=== PATIENT | female | born 1995 | race Caucasian/White ===

== ENCOUNTER → 2016-09-23 | Outpatient (CLI) | payer OTHER ==
[~2016-09-23] MED LIST: PRENTAB26 PO
== END | disposition home or self-care (01) ==
LOC: C.PAPS 07:59
PROVIDERS: ATTEND Obstetrics & Gynecology
DX: Z12.4 Encounter for screening for malignant neoplasm of cervix (principal); R87.616 Satisfactory cervical smear but lacking transformation zone; Z87.42 Personal history of other diseases of the female genital tract

== ENCOUNTER → 2017-09-29 | Outpatient (CLI) | payer BC | END | disposition home or self-care (01) | LOC: C.LABSPEC 13:43 | PROVIDERS: ATTEND Obstetrics & Gynecology | DX: Z11.3 Encounter for screening for infections with a predominantly sexual mode of transmission (principal) ==

== ENCOUNTER → 2017-09-29 | Outpatient (CLI) | payer BC | END | disposition home or self-care (01) | LOC: C.PAPS 14:32 | PROVIDERS: ATTEND Obstetrics & Gynecology | DX: Z01.419 Encounter for gynecological examination (general) (routine) without abnormal findings (principal) ==

== ENCOUNTER 2023-02-21 07:34 | Inpatient (IN) ==
[2023-02-21] MEDS ORDERED: OXYTOCIN 30 UNITS/500 ML BAG IV PRN ×2 (08:39)
[2023-02-21] MEDS ORDERED: miSOPROStoL 50 MCG TAB PO ONE (08:39)
[2023-02-21] MEDS ORDERED: LIDOCAINE 1% LOCAL 20 ML VIAL INFIL PRN (08:39)
--- NOTE | 2023-02-21 09:04 | History & Physical Report ---
"Date of Service February 21, 2023 Assessment & Plan (1) Encounter for induction of labor: Plan: lund bulb out pitocin arom when indicated monitor tracing, category 1 Admission and Anticipated Discharge Date Admission Date: February 21, 2023 History of Present Illness Primary Care Provider: Kwabena Sanches MD 27 yo at 40w5d admitted for IOL for postdates. Lund bulb placed yesterday, fell out spontaneously this AM. Denies ARNDT, CP, SOB, N/V/D, LE pain. GBS neg, RH+ Allergies Allergy/AdvReac Type Severity Reaction Status Date / Time cat dander Allergy Watery Eye Verified 02/20/23 20:50 No Known Drug Allergies Allergy Unknown Verified 02/20/23 20:50 Home Medications Medication Instructions Recorded Confirmed Type prenat.vits,viktor,[id number] 1 tab PO DAILY 07/12/22 02/21/23 History levothyroxine 100 mcg tablet 100 mcg PO DAILY #30 tabs 12/23/22 02/21/23 Rx Past Med/Surg History Medical History (Updated 02/21/23 @ 09:13 by Trevor Quintana DO) Cervical dysplasia Abiel's thyroiditis Malaise and fatigue Overweight (BMI 25.0-29.9) Stress Surgical History H/O colposcopy with cervical biopsy History of tonsillectomy [place] teeth extracted 2016 Family History Grandfather (Maternal) Myocardial infarction Grandmother (Maternal) Diabetes Melanoma Father Headache syndrome Grandmother (Paternal) Hypothyroidism Aunt Hypothyroidism maternal Breast cancer Other Cancer Hypertension Lung disease Osteoarthritis Denies family history of Ovarian cancer Prostate cancer Colorectal cancer Social History (Updated 02/21/23 @ 07:56 by Melba Quiglye RN) Smoking Status: Former smoker Tobacco Type: Cigarettes Second Hand Exposure: No; Do You Dip or Chew Tobacco: No; Hx Alcohol Use: No Hx Substance Use: No Preferred Language: Pashto Communication Ability: Effective 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 Skin: warm, dry, intact HEENT: NC/AT, anicteric sclera, conjunctiva without injection, moist mucus membranes Heart: +S1/S2, regular, no m/r/g Lungs: equal air entry bilaterally, no rales/rhonchi/wheezes Abd: +BS, soft, NT/ND, gravid uterus Cervical: 3.5|75|-2|, mid, soft Ext: warm, no clubbing/cyanosis or edema Neuro: nonfocal, patient AA&O x 4, speech intact, no facial droop, moving all extremities on command. : FHR baseline 130, moderate variability, accelerations present, decelerations absent Results & Data Results & Data Vital Signs (Past 12 Hours) Vital Signs Temp Pulse Resp BP 02/21/23 08:02 99 H 118/79 02/21/23 07:57 37.1 C 18 Laboratory Results 02/21/23 02/21/23 Range/Units 08:59 08:59 WBC Pending RBC Pending Hgb Pending Hct Pending MCV Pending MCH Pending MCHC Pending Plt Count Pending Blood Type Pending Antibody Screen Pending Supervising Physician Co-Signing Physician Notes Resident Physician Supervision Note: I interviewed and examined the patient. Discussed with Dr. Quintana and agree with findings and plan as documented in the note. Any exceptions or clarifications are listed here: [id number] with iup at 40 5/7 who presents for postdates induction. Good response to lund bulb. cx 3.5/80/-2. efw 8-9. Plan pit induction, arom when indicated, epidural on demand, anticipate . Fetus category one. Documented By: Bebe Chicas MD, FACOG Resident Activity Tracking Resident Involvement: Resident Care Provided Care Provided: Adult [facility] Medicine History History 2 Para Past Pregnancies Del. Date GA wks Lbr Lgth wt Sex Type del Anes Place Del Prov Preter m? Comment 01/27/12 40 8lb 5oz M Epidural [facility] Dr. Higuera on N 2nd degree perineal laceration"
[2023-02-21] MEDS: LACTATED RINGER'S 1,000 ML IV PRN ×3 (09:08→17:35)
[2023-02-21 09:30] LABS: Hematocrit (blood only) 34.7 % (37.0-47.0); Hemoglobin 11.7 g/dl (12.0-16.0); Mean Corpuscular Hemoglobin 30.8 pg (25.0-34.0); Mean Corpuscular Hgb Conc 33.7 g/dL (32.0-36.0); Mean Corpuscular Volume 91.3 fL (80.0-100.0); Mean Platelet Volume 9.7 fL (9.4-12.4); Platelet Count 218 K/uL (130-400); RDW Coefficient of Variation 13.4 % (11.5-14.5); RDW Standard Deviation 45.1 fL (36.4-46.3); White Blood Count 10.18 K/ul (4.8-10.8)
[2023-02-21] MEDS ORDERED: BUPIVACAINE 0.25% PF 30 ML VIAL ONE (12:58)
[2023-02-21] MEDS ORDERED: SODIUM CHLORIDE 0.9% PF INJ 10 ML VIAL ONE (12:58)
[2023-02-21] MEDS ORDERED: ePHEDrine sulfate 50 MG/ML AMP ONE (12:58)
[2023-02-21] MEDS ORDERED: fentaNYL citrate PF 100 MCG/2 ML VIAL ONE (12:58)
[2023-02-21] MEDS ORDERED: LIDOCAINE 2%/EPINEPHRINE 1:200,000 20 ML PF ONE (12:58)
[2023-02-21] MEDS ORDERED: fentaNYL 2MCG/ML ROPIVACAINE 1.25MG/ML 100 ML BAG EPI ONE (12:59)
--- NOTE | 2023-02-21 14:11 | Anesthesiology Consultation ---
Date of Service February 21, 2023 Assessment & Plan Chart Review Chart Review: Acceptable Risk for Labor Epidural Consults Requested none History Height/Weight Height: 5 ft 3 in Weight: 99.79 kg Allergies Allergy/AdvReac Type Severity Reaction Status Date / Time cat dander Allergy Watery Eye Verified 02/20/23 20:50 No Known Drug Allergies Allergy Unknown Verified 02/20/23 20:50 Medications Home Medications Medication Instructions Recorded Confirmed Last Taken prenat.vits,viktor,dyz-[id number]-lsfom 1 tab PO DAILY 07/12/22 02/21/23 02/21/23 levothyroxine 100 mcg tablet 100 mcg PO DAILY #30 tabs 12/23/22 02/21/23 02/21/23 Active Medications Generic Name Dose Route Start Last Admin Trade Name Freq PRN Reason Stop Dose Admin Oxytocin 30 units in 500 mls @ 11 mls/hr 02/21/23 08:39 02/21/23 12:15 Pitocin IV 02/23/23 08:38 0.66 units/hr .Q24H PRN 11 mls/hr Labor Induction/Augmentation Titration Protocol 0.66 UNITS/HR Lactated Ringer's 1,000 mls @ 125 mls/hr 02/21/23 08:39 02/21/23 13:57 Lr IV 02/23/23 08:38 125 mls/hr .Q8H PRN Infusion L&D Protocol Protocol Past Medical History Medical History (Updated 02/21/23 @ 09:13 by Trevor Quintana DO) Cervical dysplasia Abiel's thyroiditis Malaise and fatigue Overweight (BMI 25.0-29.9) Stress Past Family History Family History Grandfather (Maternal) Myocardial infarction Grandmother (Maternal) Diabetes Melanoma Father Headache syndrome Grandmother (Paternal) Hypothyroidism Aunt Hypothyroidism maternal Breast cancer Other Cancer Hypertension Lung disease Osteoarthritis Denies family history of Ovarian cancer Prostate cancer Colorectal cancer Past Surgical History Surgical History H/O colposcopy with cervical biopsy History of tonsillectomy [place] teeth extracted 2016 Social History Smoking Status: Former smoker Do You Dip or Chew Tobacco: No Hx Alcohol Use: No Hx Substance Use: No substance use type: does not use Physical Exam Vital Signs Last Vital Signs Temp 36.9 C 02/21/23 10:56 Pulse 100 H 02/21/23 14:06 Resp 20 02/21/23 13:51 BP 97/54 L 02/21/23 14:06 Pulse Ox 99 02/21/23 14:04 Testing Laboratory Results 02/21/23 08:59 Blood Type O Positive 02/21/23 08:59 Antibody Screen NEGATIVE 02/21/23 08:59
[2023-02-21] MEDS ORDERED: BUPIVACAINE 0.25% PF 30 ML VIAL EPI STA (14:25)
[2023-02-21] MEDS ORDERED: SODIUM CHLORIDE 0.9% PF INJ 10 ML VIAL EPI STA (14:25)
[2023-02-21] MEDS ORDERED: NALOXONE HCL 1 MG in SODIUM CHLORIDE 0.9% 1,000 ML IV PRN (14:25)
[2023-02-21] MEDS ORDERED: diphenhydrAMINE 50 MG/ML VIAL IV PRN (14:25)
[2023-02-21] MEDS ORDERED: NALBUPHINE HCL INJ 10 MG/ML AMP IV PRN (14:25)
[2023-02-21] MEDS ORDERED: ROPIVACAINE 0.5% PF 5 MG/ML 20 ML VIAL EPI PRN (14:25)
[2023-02-21] MEDS ORDERED: LIDOCAINE 2% MPF LOCAL 5 ML VIAL EPI PRN (14:25)
[2023-02-21] MEDS ORDERED: ePHEDrine sulfate 50 MG/ML AMP IV PRN (14:25)
[2023-02-21] MEDS ORDERED: fentaNYL citrate PF 100 MCG/2 ML VIAL EPI PRN (14:25)
[2023-02-21] MEDS ORDERED: SODIUM CHLORIDE 0.9% PF INJ 10 ML VIAL EPI PRN (14:25)
[2023-02-21] MEDS ORDERED: BUPIVACAINE 0.25% PF 30 ML VIAL EPI PRN (14:25)
[2023-02-21] MEDS ORDERED: fentaNYL citrate PF 100 MCG/2 ML VIAL EPI STA (14:25)
[2023-02-21] MEDS ORDERED: NALOXONE HCL 0.4 MG/1 ML VIAL/CARP IV PRN (14:25)
[2023-02-21] MEDS ORDERED: LIDOCAINE 2%/EPINEPHRINE 1:200,000 20 ML PF EPI STA (14:25)
[2023-02-21] MEDS ORDERED: fentaNYL 2MCG/ML ROPIVACAINE 1.25MG/ML 100 ML BAG EPI PRN (14:25)
--- NOTE | 2023-02-21 14:51 | Labor Progress Brief Note ---
Date of Service February 21, 2023 Subjective comfortable with epidural Assessment & Plan (1) Encounter for induction of labor: Plan continue current management. fetus category one. anticipate . Admission and Anticipated Discharge Date Admission Date: February 21, 2023 Physical Exam Physical Exam: cx--4/75/-2 arom--small clear toco--q2-4, pit at 13 efm--130s wtih mod variability, accels to 150s, no decels Results & Data Vital Signs (Past 12 Hours) Vital Signs Temp Pulse Resp BP Pulse Ox 02/21/23 14:48 68 109/57 L 02/21/23 14:44 87 99 02/21/23 14:41 92 H 92/52 L 02/21/23 14:39 86 99 02/21/23 14:37 74 90/52 L 02/21/23 14:34 71 99 02/21/23 14:32 86 92/57 L 02/21/23 14:29 83 98 02/21/23 14:27 81 95/50 L 02/21/23 14:24 74 98 02/21/23 14:22 77 92/51 L 02/21/23 14:19 78 98 02/21/23 14:16 92 H 99/58 L 02/21/23 14:14 73 98 02/21/23 14:13 87 98/57 L 02/21/23 14:09 75 98 02/21/23 14:06 100 H 20 97/54 L 02/21/23 14:04 92 H 99 02/21/23 14:05 93 H 20 101/52 L 02/21/23 14:02 93 H 20 102/55 L 02/21/23 14:00 101 H 106/55 L 02/21/23 13:59 91 H 99 02/21/23 13:58 99 H 107/58 L 02/21/23 13:57 99 H 112/60 02/21/23 13:54 102 H 20 121/73 99 02/21/23 13:52 80 126/74 02/21/23 13:51 20 02/21/23 13:51 94 H 20 133/82 02/21/23 13:49 102 H 98 02/21/23 13:47 75 92 02/21/23 13:44 83 100 02/21/23 13:39 76 99 02/21/23 13:34 73 99 02/21/23 13:29 73 99 02/21/23 13:24 84 99 02/21/23 13:19 75 98 02/21/23 13:14 71 99 02/21/23 13:09 81 98 02/21/23 13:04 82 20 115/62 99 02/21/23 12:30 18 02/21/23 12:30 18 02/21/23 12:13 70 20 108/59 L 02/21/23 10:56 36.9 C 75 20 107/68 02/21/23 10:17 77 18 111/64 02/21/23 09:06 78 20 114/69 02/21/23 08:02 99 H 118/79 02/21/23 07:57 37.1 C 18 Coding Level of Care Code None Diagnoses Encounter for induction of labor Z34.90
--- NOTE | 2023-02-21 18:44 | Delivery Summary ---
Vaginal Delivery Summary Date of Service February 21, 2023 Vaginal Delivery Summary Spontaneous vaginal delivery the patient had been induced by Dr. Chicas earlier in the day and I was covering in the evening she rapidly progressed to fully dilated she was had an epidural and pushed over only several contractions group B strep negative no obvious meconium at time of delivery after delivery of the head there was a tight nuchal cord which was clamped and cut before delivery of the body then gentle traction on the baby no excessive force live vigorous male . Placenta was then delivered with traction IV Pitocin was started second-degree tear repaired with 3-0 Vicryl sponge and instrument counts correct estimated blood loss 250 mL
[2023-02-21] MEDS ORDERED: BENZOCAINE 20% SPRY 85 APPLN/85 GM CAN EXT PRN (18:47)
[2023-02-21] MEDS ORDERED: oxyCODONE/ACETAMINOPHEN 5mg/325mg TAB PO PRN (18:47)
[2023-02-21] MEDS ORDERED: bisacodyL 10 MG SUPP PR PRN (18:47)
[2023-02-21] MEDS ORDERED: DIPHTHERIA/TETANUS/PERTUSSIS Vaccine (Tdap, Age 7+yrs) 0.5mL SYR/VL IM ONE (18:47)
[2023-02-21] MEDS ORDERED: HYDROCORTISONE ACETATE 25 MG SUPP PR PRN (18:47)
[2023-02-21] MEDS ORDERED: ACETAMINOPHEN 325 MG TAB PO PRN (18:47)
[2023-02-21 18:55] LABS: Base Excess Cord Arterial Bld 0.3 mEq/L (-9-1.8); Base Excess Cord Venous Blood -0.4 mEq/L (-7.7-1.9); CO2 Cord Arterial Blood 53 mmHg (39.1-73.5); Cord Venous Blood HCO3 25 mmol/L (18.4-26.8); Cord Venous Blood PCO2 42 mmHg (30.4-57.2); Cord Venous Blood PO2 39 mmHg (14.1-43.3); Cord Venous Blood pH 7.38 (7.20-7.44); HCO3 Cord Arterial Blood 27 mmol/L (19.7-28.5); O2 Saturation Cord Venous Bld 71.5 % (<68); Oxygen Sat Cord Arterial Blood < 60.0 % (<60); PO2 Cord Arterial Blood 27 mmHg (4.1-31.7); pH Cord Arterial Blood 7.32 (7.1-7.38)
[2023-02-21] MEDS: OXYTOCIN 30 UNITS/500 ML BAG IV PRN ×3 (19:05→20:41)
[2023-02-21] MEDS ORDERED: CARBOPROST TROMETHAMINE 250 MCG/ML AMPUL IM ONE (20:52)
--- NOTE | 2023-02-21 20:55 | Obstetrical Progress Note ---
Date of Service February 21, 2023 Assessment & Plan Admission and Anticipated Discharge Date Admission Date: February 21, 2023 Subjective Patient had a hemorrhage she has not passed any huge clots but has had some ongoing trickling Pitocin has been increased and she is now on her fourth bag uterine tone is good I have done several bimanual exams and 1 time I was able to remove clot this most recent time no clot came out I am suspecting uterine atony as it was a fairly easy delivery and there is no bleeding from the tear will give some Hemabate and watch Results & Data Vital Signs (Past 12 Hours) Vital Signs Temp Pulse Resp BP Pulse Ox O2 Del Method 02/21/23 20:15 18 02/21/23 19:45 98.6 F 97 H 18 108/71 02/21/23 19:15 98.8 F 18 02/21/23 19:30 18 02/21/23 19:00 18 02/21/23 18:45 20 02/21/23 15:20 98.1 F 18 02/21/23 15:20 Room Air 02/21/23 20:49 102 H 114/74 02/21/23 20:45 94 H 105/65 02/21/23 20:18 105 H 128/69 02/21/23 20:02 97 H 108/71 02/21/23 19:47 73 105/64 02/21/23 19:32 91 H 100/55 L 02/21/23 19:19 95 H 98 02/21/23 19:17 90 110/62 02/21/23 19:14 93 H 98 02/21/23 19:09 101 H 97 02/21/23 19:06 100 H 93 02/21/23 19:04 86 98 02/21/23 19:02 104 H 114/72 02/21/23 18:59 100 H 98 02/21/23 18:54 108 H 99 02/21/23 18:49 92 H 99 02/21/23 18:46 103 H 111/69 02/21/23 18:44 97 H 98 02/21/23 18:39 108 H 100 02/21/23 18:34 96 H 99 02/21/23 18:32 126 H 93 02/21/23 18:29 203 H 100 02/21/23 18:24 90 97 02/21/23 18:20 96 H 120/72 02/21/23 18:19 87 99 02/21/23 18:14 101 H 99 02/21/23 18:09 104 H 98 02/21/23 18:05 95 H 129/82 02/21/23 18:04 95 H 100 02/21/23 17:59 75 100 02/21/23 17:54 90 99 02/21/23 17:52 112 H 93 02/21/23 17:51 100 H 128/62 02/21/23 17:49 78 100 02/21/23 17:44 72 100 02/21/23 17:39 97 H 100 02/21/23 17:38 83 92 02/21/23 17:34 74 100 02/21/23 17:35 81 105/60 02/21/23 17:30 18 02/21/23 17:30 18 02/21/23 17:29 76 98 02/21/23 17:24 77 98 02/21/23 17:22 82 128/85 02/21/23 17:19 98.8 F 82 18 99 02/21/23 17:14 80 99 02/21/23 17:09 72 98 02/21/23 17:04 85 100 02/21/23 17:05 86 120/74 02/21/23 16:59 71 100 02/21/23 16:54 68 99 02/21/23 16:49 73 99 02/21/23 16:50 73 118/71 02/21/23 16:44 92 H 99 02/21/23 16:39 73 99 02/21/23 16:36 79 114/70 02/21/23 16:34 67 98 02/21/23 16:29 69 97 02/21/23 16:24 72 99 02/21/23 16:19 76 120/72 98 02/21/23 16:14 76 98 02/21/23 16:09 72 98 02/21/23 16:07 80 120/70 02/21/23 16:04 71 98 02/21/23 15:59 73 98 02/21/23 15:54 73 99 02/21/23 15:50 71 110/68 02/21/23 15:49 75 98 02/21/23 15:44 71 98 02/21/23 15:39 65 98 02/21/23 15:34 77 98 02/21/23 15:35 76 113/68 02/21/23 15:29 76 100 02/21/23 15:24 74 100 02/21/23 15:22 90 102/62 02/21/23 15:19 76 100 02/21/23 15:20 81 99/57 L 02/21/23 15:14 100 H 97 02/21/23 15:09 105 H 98 02/21/23 15:04 92 H 98 02/21/23 15:05 92 H 96/55 L 02/21/23 14:59 101 H 98 02/21/23 14:54 97.7 F 77 20 97 02/21/23 14:49 73 100 02/21/23 14:48 68 109/57 L 02/21/23 14:44 87 99 02/21/23 14:41 92 H 92/52 L 02/21/23 14:39 86 99 02/21/23 14:37 74 90/52 L 02/21/23 14:34 71 99 02/21/23 14:32 86 92/57 L 02/21/23 14:29 83 98 02/21/23 14:27 81 95/50 L 02/21/23 14:24 74 98 02/21/23 14:22 77 92/51 L 02/21/23 14:19 78 98 02/21/23 14:16 92 H 99/58 L 02/21/23 14:14 73 98 02/21/23 14:13 87 98/57 L 02/21/23 14:09 75 98 02/21/23 14:06 100 H 20 97/54 L 02/21/23 14:04 92 H 99 02/21/23 14:05 93 H 20 101/52 L 02/21/23 14:02 93 H 20 102/55 L 02/21/23 14:00 101 H 106/55 L 02/21/23 13:59 91 H 99 02/21/23 13:58 99 H 107/58 L 02/21/23 13:57 99 H 112/60 02/21/23 13:54 102 H 20 121/73 99 02/21/23 13:52 80 126/74 02/21/23 13:51 20 02/21/23 13:51 94 H 20 133/82 02/21/23 13:49 102 H 98 02/21/23 13:47 75 92 02/21/23 13:44 83 100 02/21/23 13:39 76 99 02/21/23 13:34 73 99 02/21/23 13:29 73 99 02/21/23 13:24 84 99 02/21/23 13:19 75 98 02/21/23 13:14 71 99 02/21/23 13:09 81 98 02/21/23 13:04 82 20 115/62 99 02/21/23 12:30 18 02/21/23 12:30 18 02/21/23 12:13 70 20 108/59 L 02/21/23 10:56 98.4 F 75 20 107/68 02/21/23 10:17 77 18 111/64 02/21/23 09:06 78 20 114/69 PG Care Time/CCT Total # of Minutes Spent Total Time Spent with Patient: Total time spent is greater than 50% in coordination of care (as documented) at patient's floor/unit and/or counseling patient: Coding Level of Care Code None Diagnoses
[2023-02-21] MEDS: IBUPROFEN 600 MG TAB PO PRN (22:31)
[2023-02-21] MEDS: DOCUSATE SODIUM 100 MG CAP PO SCH (22:35)
[2023-02-21] MEDS ORDERED: diphenhydrAMINE Capsule 25 MG CAP PO ONE (23:12)
--- NOTE | 2023-02-21 23:16 | Communication Note ---
Date of Service: February 21, 2023 Received sign out from Dr. Crane regarding her delivery. He gave her hemobate im into her right lateral thigh. Her bleeding has improved and her fu ndus is firm. However, on the thigh is a large , small dinner plate size, erythematous area surrounding the area where she received the injection. The patient notes she feels hot but not short of breath or having chest pain. She does not feel itchy. Do not see any other area that appears similar. Seems to be having a localized reaction in the area of the hemobate. Will give a dose of benadryl. The area is marked and will monitor closely.
--- NOTE | 2023-02-21 23:18 | Anesthesia Procedure Note ---
Date of Service February 21, 2023 Anesthesia Post Epidural Note Vital Signs Vital Signs: Temp Pulse Resp BP Pulse Ox O2 Del Method 37 C 95 H 18 137/72 98 Room Air 02/21/23 22:45 02/21/23 22:49 02/21/23 22:45 02/21/23 22:49 02/21/23 19:19 02/21/23 15:20 Pain Intensity Perineal: Pain Intensity: 2 Notes Mental Status: alert / awake / arousable Nausea / Vomiting: adequately controlled Pain: adequately controlled Airway Patency, RR, SpO2: stable & adequate BP & HR: stable & adequate Hydration State: stable & adequate Neuraxial Anesthesia: was administered and sensory block is resolving Anesthetic Complications: no major complications apparent and Pt Satisfied with anesthetic care Epidural: Removed without complications and With tip intact
[2023-02-22] MEDS ORDERED: LEVOTHYROXINE SODIUM 100 MCG TABLET PO SCH (06:30)
--- NOTE | 2023-02-22 06:47 | Obstetrical Progress Note ---
Date of Service February 22, 2023 Assessment & Plan (1) (spontaneous vaginal delivery): Plan: complicated by post hemorrhage Hb stable, bleeding minimal encourage ambulation pain control dc today Admission and Anticipated Discharge Date Admission Date: February 21, 2023 Supervising Physician Co-Signing Physician Notes Resident Physician Supervision Note: I interviewed and examined the patient. Discussed with Dr. Quintana and agree with findings and plan as documented in the note. Any exceptions or clarifications are listed here: Doing well. The area on her right thigh has not significantly spread. It is now softer and blanches. Patient notes it is not hot anymore and not itchy. Discussed worrisome signs. d/c instructions given. Documented By: Bebe Chicas MD, FACOG Subjective 27 yo post day 1 s/p complicated by post hemorrhage, Hemabate given Ambulation: ambulating normally Voiding: no voiding problems Passing Gas:: Yes Diet Tolerance:: regular diet Lochia:: Small Feeding Type:: breast feeding Current Pain Level: minimal Bleeding minimal this AM. Resting comfortably this AM in NAD. Denies ARNDT, CP, SOB, N/V/D, LE pain/swelling. Review of Systems Review of Systems: reviewed, per HPI Physical Exam Physical Exam: General: patient resting comfortably, NAD, non-toxic in appearance, AA&O x 4, answers questions appropriately. Skin: warm, dry, intact HEENT: NC/AT, anicteric sclera, conjunctiva without injection, moist mucus membranes. Heart: +S1/S2, regular, no m/r/g Lungs: equal air entry bilaterally, no rales/rhonchi/wheezes Abd: +BS, soft, NT/ND, uterine fundus firm at umbilicus. Ext: warm, no clubbing/cyanosis or edema, Nhi's neg. Neuro: nonfocal, patient AA&O x 4, speech intact, no facial droop, moving all extremities on command. Results & Data Vital Signs (Past 12 Hours) Vital Signs Temp Pulse Pulse Resp BP BP Pulse Ox 02/22/23 06:11 36.8 C 74 18 112/78 100 02/22/23 00:40 37.1 C 84 16 103/69 02/21/23 22:45 37 C 95 H 18 137/72 02/21/23 22:15 37.0 C 18 02/21/23 21:45 18 02/21/23 21:15 18 02/21/23 20:45 37 C 102 H 18 114/74 02/21/23 20:15 18 02/21/23 19:45 37 C 97 H 18 108/71 02/21/23 19:15 37.1 C 18 02/21/23 19:30 18 02/21/23 19:00 18 02/21/23 18:45 20 02/21/23 23:19 85 142/69 H 02/21/23 22:49 95 H 137/72 02/21/23 22:27 95 H 140/73 02/21/23 21:21 99 H 103/59 L 02/21/23 20:49 102 H 114/74 02/21/23 20:45 94 H 105/65 02/21/23 20:18 105 H 128/69 02/21/23 20:02 97 H 108/71 02/21/23 19:47 73 105/64 02/21/23 19:32 91 H 100/55 L 02/21/23 19:19 95 H 98 02/21/23 19:17 90 110/62 02/21/23 19:14 93 H 98 02/21/23 19:09 101 H 97 02/21/23 19:06 100 H 93 02/21/23 19:04 86 98 02/21/23 19:02 104 H 114/72 02/21/23 18:59 100 H 98 02/21/23 18:54 108 H 99 02/21/23 18:49 92 H 99 02/21/23 18:46 103 H 111/69 02/21/23 18:44 97 H 98 O2 Del Method 02/22/23 06:11 Room Air 02/22/23 00:40 Room Air 02/21/23 22:45 02/21/23 22:15 02/21/23 21:45 02/21/23 21:15 02/21/23 20:45 02/21/23 20:15 02/21/23 19:45 02/21/23 19:15 02/21/23 19:30 02/21/23 19:00 02/21/23 18:45 02/21/23 23:19 02/21/23 22:49 02/21/23 22:27 02/21/23 21:21 02/21/23 20:49 02/21/23 20:45 02/21/23 20:18 02/21/23 20:02 02/21/23 19:47 02/21/23 19:32 02/21/23 19:19 02/21/23 19:17 02/21/23 19:14 02/21/23 19:09 02/21/23 19:06 02/21/23 19:04 02/21/23 19:02 02/21/23 18:59 02/21/23 18:54 02/21/23 18:49 02/21/23 18:46 02/21/23 18:44 Laboratory Results 02/21/23 02/21/23 02/21/23 Range/Units 18:33 18:33 08:59 WBC 10.18 (4.8-10.8) K/ul RBC 3.80 L (4.20-5.40) M/uL Hgb 11.7 L (12.0-16.0) g/dl Hct 34.7 L (37.0-47.0) % MCV 91.3 (80.0-100.0) fL MCH 30.8 (25.0-34.0) pg MCHC 33.7 (32.0-36.0) g/dL RDW Std Deviation 45.1 (36.4-46.3) fL RDW Coeff of Rosa M 13.4 (11.5-14.5) % Plt Count 218 (130-400) K/uL MPV 9.7 (9.4-12.4) fL Cord ABG pH 7.32 (7.1-7.38) Cord ABG pCO2 53 (39.1-73.5) mmHg Cord ABG pO2 27 (4.1-31.7) mmHg Cord ABG HCO3 27 (19.7-28.5) mmol/L Cord ABG Base Excess 0.3 (-9-1.8) mEq/L Cord ABG O2 Sat < 60.0 (<60) % Cord VBG pH 7.38 (7.20-7.44) Cord VBG pCO2 42 (30.4-57.2) mmHg Cord VBG pO2 39 (14.1-43.3) mmHg Cord VBG HCO3 25 (18.4-26.8) mmol/L Cord VBG Base Excess -0.4 (-7.7-1.9) mEq/L Cord VBG O2 Sat 71.5 H (<68) % Blood Gas Comments BANGURA BANGURA Blood Type Antibody Screen 02/21/23 Range/Units 08:59 WBC (4.8-10.8) K/ul RBC (4.20-5.40) M/uL Hgb (12.0-16.0) g/dl Hct (37.0-47.0) % MCV (80.0-100.0) fL MCH (25.0-34.0) pg MCHC (32.0-36.0) g/dL RDW Std Deviation (36.4-46.3) fL RDW Coeff of Rosa M (11.5-14.5) % Plt Count (130-400) K/uL MPV (9.4-12.4) fL Cord ABG pH (7.1-7.38) Cord ABG pCO2 (39.1-73.5) mmHg Cord ABG pO2 (4.1-31.7) mmHg Cord ABG HCO3 (19.7-28.5) mmol/L Cord ABG Base Excess (-9-1.8) mEq/L Cord ABG O2 Sat (<60) % Cord VBG pH (7.20-7.44) Cord VBG pCO2 (30.4-57.2) mmHg Cord VBG pO2 (14.1-43.3) mmHg Cord VBG HCO3 (18.4-26.8) mmol/L Cord VBG Base Excess (-7.7-1.9) mEq/L Cord VBG O2 Sat (<68) % Blood Gas Comments Blood Type O Positive Antibody Screen NEGATIVE Resident Activity Tracking Resident Involvement: Resident Care Provided Care Provided: Adult Hospital Medicine
[2023-02-22 07:07] LABS: Hematocrit (blood only) 32.2 % (37.0-47.0); Mean Corpuscular Hemoglobin 30.8 pg (25.0-34.0); Mean Corpuscular Hgb Conc 34.2 g/dL (32.0-36.0); Mean Corpuscular Volume 90.2 fL (80.0-100.0); Mean Platelet Volume 9.9 fL (9.4-12.4); Platelet Count 212 K/uL (130-400); RDW Coefficient of Variation 13.2 % (11.5-14.5); RDW Standard Deviation 43.8 fL (36.4-46.3); Red Blood Count 3.57 M/uL (4.20-5.40)
[2023-02-22] MEDS ORDERED: PRENATAL VITAMIN 1 TAB PO SCH (08:00)
[2023-02-22] MEDS: DOCUSATE SODIUM 100 MG CAP PO SCH (08:36)
[2023-02-22] MEDS: IBUPROFEN 600 MG TAB PO PRN (08:36)
[2023-02-22] MEDS ORDERED: bisacodyL 5 MG TABEC PO SCH (20:00)
== END 2023-02-22 19:00 | disposition home or self-care (01) | DRG 807 ==
LOC: 4S1 07:34 → 4E2 02-22 00:22